=== PATIENT | female | born 1950 | race American Indian/Alaskan Native ===

== ENCOUNTER → 2017-03-29 | Outpatient (CLI) | payer MEDICARE, OTHER ==
[~2017-03-29] MED LIST: (None)20 M1 PO; ALBU3IS INH; ALBU90OI INH; ALBU90OI6 INH; ALBU90OI61 INH; ALPR1 PO; AZIT250 PO; AZITHROMYCIN PO; BENZ100A PO; CEPH500 PO; CHLO25B; CHLO25B PO; CIPR500 PO; CODGUAEL PO; COMBIVENT RESPIM4 GM INH; Chlorthalidone25 MG PO; DELTASONE20 MG PO; DIGO.125 PO; DOXY100 PO; DULERA 200 MCG/13 GM INH; Duoneb 2.5-0.5 M3 ML INH; FLUSAL2505 IH; FLUSAL5005 IH; FLUSAL5005 INH; FLUT.05NI; FLUT1DIS8 INH; FURO20 PO; GUAI600T33 PO; HYDACE10B; HYDACE10B PO; HYDCHL25 PO; HYDGUAL120 PO; K DU; K-Dur20 MEQ PO; KADIAN PO; LANOXIN125 MCG PO; LEVA.63IS; LEVA.63IS IH; LEVA.63IS INH; LEVA1.25 IH; LEVFLO500 PO; LEVO750 PO; LISI5 PO; LOPE2C PO; LORA10 PO; LORA2 PO; Levaquin500 MG PO; MEDROL PO; METO25ER PO; MOMENI; MONT10T PO; MORP15ER; MORP50ER PO; MORP60ER PO; MORPHINE SULFA100 M1 PO; MS CONTIN; MS CONTIN PO; MUCINEX; MUCINEX ER PO; NICO14TP TOP; Nasonex17 GM; OMEP20ER PO; OXYACE5T PO; OXYC10ER; OXYC15ER PO; POTA10T PO; POTCHL10ER PO; POTCHL20ER; POTCHL20ER PO; PRED10; PRED10 PO; PRED20; PRED20 PO; PROCODE120 PO; PRODEXEL PO; PROM25 PO; Prednisone20 MG PO; RANI150 PO; RXHYDACE PO; Roxicodone15 MG PO; SERT50 PO; SULTRIDS PO; TIOT18 IH; TIOT18 INH; Tessalon Perle100 MG PO; Valium5 MG PO; Ventolin Soln3 ML INH; Ventolin5 MG/1 ML IH; Vibramycin100 MG PO; Xanax1 MG PO; Xopenex Hfa15 GM INH; ZOLP10 PO; Zithromax250 MG PO; [UNRECOGNIZED DRUG - OTHER] PO
== END ==
LOC: OLS 09:55
DX: R05 Cough (principal)
CPT/HCPCS: 87070; 87205

== ENCOUNTER 2017-04-11 16:37 | Inpatient (IN) | payer MEDICARE, OTHER ==
[~2017-04-11] VITALS: Ht 167.6 cm; Wt 70.1 kg
[~2017-04-11 16:37] MED LIST changes: -DELTASONE20 MG PO
[2017-04-11] MEDS ORDERED: GUAI600T33 PO (17:12)
[2017-04-11 17:15] LABS: BASOPHILS ABSOLUTE AUTO 0.07 K/mm3 (0.00-0.23); BASOPHILS PERCENT AUTO 1 % (0-2); EOSINOPHILS ABSOLUTE AUTO 0.02 K/mm3 (0.00-0.68); EOSINOPHILS PERCENT AUTO 0 % (0-6); IMMATURE GRAN ABSOLUTE AUTO 0.06 K/mm3 (0.00-0.10); IMMATURE GRAN PERCENT AUTO 0 % (0-1); LYMPHOCYTES ABSOLUTE AUTO 0.57 K/mm3 (0.84-5.20); LYMPHOCYTES PERCENT AUTO 4 % (21-46); MONOCYTES ABSOLUTE AUTO 0.08 K/mm3 (0.16-1.47); MONOCYTES PERCENT AUTO 1 % (4-13); Mean Corpuscular HGB 30.9 pg (26.0-34.0); Mean Corpuscular HGB Conc 34.1 g/dL (31.5-36.5); Mean Corpuscular Volume 91 fL (80-100); Mean Platelet Volume 9.2 fL (9.1-12.4); NEUTROPHILS ABSOLUTE AUTO 14.61 K/mm3 (1.96-9.15); NEUTROPHILS PERCENT AUTO 95 % (41-73); Platelet Count 318 K/mm3 (150-400); RDW Standard Deviation 42.9 fL (35.1-46.3); Red Blood Cell Count 4.86 M/mm3 (3.80-5.20); White Blood Cell Count 15.41 K/mm3 (4.00-11.30)
[2017-04-11 17:41] LABS: Troponin I <0.015 ng/mL (0.000-0.040)
[2017-04-11 17:44] LABS: Alanine Aminotransfer (ALT/SGP 17 U/L (12-78); Albumin, Blood 3.7 g/dL (3.4-5.0); Albumin/Globulin Ratio 0.9 (0.8-1.8); Alk Phos 79 U/L (50-136); Anion Gap 11 mmol/L (6-16); Aspartate Aminotrans (AST/SGOT 23 U/L (12-37); Bilirubin, Total 0.4 mg/dL (0.1-1.0); Blood Urea Nitrogen 4 mg/dL (8-24); Bun/Creatinine Ratio 10.5 (12.0-20.0); CO2, Blood 29 mmol/L (21-32); Calcium, Blood 9.2 mg/dL (8.5-10.1); Chloride, Blood 95 mmol/L (98-108); Creatinine, Blood 0.38 mg/dL (0.40-1.00); Globulin, Blood 3.9 g/dL (2.2-4.0); Glomerular Filtration Rate >60 (60-); Glucose, Blood 126 mg/dL (70-99); Potassium, Blood 2.8 mmol/L (3.5-5.5); Sodium, Blood 135 mmol/L (136-145); Total Protein, Blood 7.6 g/dL (6.4-8.2)
[2017-04-11 20:32] LABS: Digoxin (Lanoxin) 0.45 ug/mL (0.80-2.00)
[2017-04-11 20:48] LABS: Digoxin (Lanoxin) 0.52 ug/mL (0.80-2.00)
[2017-04-12 05:10] LABS: PCO2 Arterial 42.1 mmHg (35-45); PO2 Arterial 58.6 mmHg (80-100); pH Blood Arterial 7.44 (7.35-7.45)
[2017-04-12 05:23] LABS: BASOPHILS ABSOLUTE AUTO 0.01 K/mm3 (0.00-0.23); BASOPHILS PERCENT AUTO 0 % (0-2); EOSINOPHILS PERCENT AUTO 0 % (0-6); Hematocrit 38.3 % (33.0-51.0); Hemoglobin 13.3 g/dL (11.5-16.0); IMMATURE GRAN ABSOLUTE AUTO 0.03 K/mm3 (0.00-0.10); IMMATURE GRAN PERCENT AUTO 0 % (0-1); LYMPHOCYTES ABSOLUTE AUTO 0.58 K/mm3 (0.84-5.20); LYMPHOCYTES PERCENT AUTO 7 % (21-46); MONOCYTES PERCENT AUTO 1 % (4-13); Mean Corpuscular HGB 31.4 pg (26.0-34.0); Mean Corpuscular HGB Conc 34.7 g/dL (31.5-36.5); Mean Corpuscular Volume 91 fL (80-100); Mean Platelet Volume 9.8 fL (9.1-12.4); NEUTROPHILS ABSOLUTE AUTO 8.24 K/mm3 (1.96-9.15); NEUTROPHILS PERCENT AUTO 92 % (41-73); Platelet Count 274 K/mm3 (150-400); RDW Coefficient Variation 13.1 % (11.7-14.2); RDW Standard Deviation 43.2 fL (35.1-46.3); Red Blood Cell Count 4.23 M/mm3 (3.80-5.20); White Blood Cell Count 8.96 K/mm3 (4.00-11.30)
[2017-04-12 05:56] LABS: Alanine Aminotransfer (ALT/SGP 14 U/L (12-78); Albumin/Globulin Ratio 0.9 (0.8-1.8); Alk Phos 60 U/L (50-136); Anion Gap 10 mmol/L (6-16); Aspartate Aminotrans (AST/SGOT 13 U/L (12-37); Bilirubin, Total 0.3 mg/dL (0.1-1.0); Blood Urea Nitrogen 5 mg/dL (8-24); Bun/Creatinine Ratio 14.6 (12.0-20.0); CO2, Blood 27 mmol/L (21-32); Calcium, Blood 8.8 mg/dL (8.5-10.1); Chloride, Blood 101 mmol/L (98-108); Creatinine, Blood 0.34 mg/dL (0.40-1.00); Globulin, Blood 3.4 g/dL (2.2-4.0); Glomerular Filtration Rate >60 (60-); Glucose, Blood 172 mg/dL (70-99); Potassium, Blood 2.7 mmol/L (3.5-5.5); Sodium, Blood 138 mmol/L (136-145); Total Protein, Blood 6.4 g/dL (6.4-8.2)
[2017-04-13 06:03] LABS: Hemoglobin 12.6 g/dL (11.5-16.0); Mean Corpuscular HGB 30.7 pg (26.0-34.0); Mean Corpuscular HGB Conc 33.2 g/dL (31.5-36.5); Mean Corpuscular Volume 93 fL (80-100); Mean Platelet Volume 9.6 fL (9.1-12.4); Platelet Count 272 K/mm3 (150-400); RDW Coefficient Variation 13.9 % (11.7-14.2); RDW Standard Deviation 47.2 fL (35.1-46.3); White Blood Cell Count 26.23 K/mm3 (4.00-11.30)
[2017-04-13 06:28] LABS: Anion Gap 6 mmol/L (6-16); Blood Urea Nitrogen 8 mg/dL (8-24); Bun/Creatinine Ratio 22.5 (12.0-20.0); CO2, Blood 29 mmol/L (21-32); Calcium, Blood 8.7 mg/dL (8.5-10.1); Chloride, Blood 105 mmol/L (98-108); Creatinine, Blood 0.36 mg/dL (0.40-1.00); Glomerular Filtration Rate >60 (60-); Glucose, Blood 123 mg/dL (70-99); Potassium, Blood 4.4 mmol/L (3.5-5.5); Sodium, Blood 140 mmol/L (136-145)
[2017-04-13] MEDS ORDERED: ALBU3IS INH (12:37)
[2017-04-13] MEDS ORDERED: DELTASONE20 MG PO (13:08)
== END 2017-04-13 15:12 | disposition home or self-care (01) | DRG 189 ==
LOC: ER 16:37 → MEDS 16:38 → ENPENDDIS 04-13 12:00 → MEDS 04-13 15:12
PROVIDERS: Emergency Medicine; Internal Medicine
DX: J96.21 Acute and chronic respiratory failure with hypoxia (principal); J44.1 Chronic obstructive pulmonary disease with (acute) exacerbation; Z99.81 Dependence on supplemental oxygen; G89.4 Chronic pain syndrome; I10 Essential (primary) hypertension; E87.6 Hypokalemia; K21.9 Gastro-esophageal reflux disease without esophagitis; F60.9 Personality disorder, unspecified; Z88.6 Allergy status to analgesic agent; Z88.1 Allergy status to other antibiotic agents; Z88.0 Allergy status to penicillin; Z88.8 Allergy status to other drugs, medicaments and biological substances; Z79.891 Long term (current) use of opiate analgesic; Z79.51 Long term (current) use of inhaled steroids; Z79.899 Other long term (current) drug therapy; Z87.891 Personal history of nicotine dependence
CPT/HCPCS: 36415; 36600; 71046; 80048; 80053; 80162; 82803; 83880; 84145; 84484; 85025; 85027; 87070; 87205; 94010; 94640; 94664; 94667; 94760; 96361; 96365; 96366; 96367; 96368; 96375; 96376; 98960; 99285; 99407; G0378; J0456; J0696; J1170; J2001; J2930; J3480; J7030; J7050

== ENCOUNTER 2017-08-10 16:51 | Emergency (ER) | payer MEDICARE, OTHER ==
[~2017-08-10] VITALS: Ht 167.6 cm; Wt 59.0 kg
[~2017-08-10 16:51] MED LIST changes: +DELTASONE20 MG PO
== END 2017-08-10 18:37 | disposition home or self-care (01) ==
LOC: ER 16:51
DX: S50.11XA Contusion of right forearm, initial encounter (principal); W22.8XXA Striking against or struck by other objects, initial encounter; Z88.8 Allergy status to other drugs, medicaments and biological substances; Z88.5 Allergy status to narcotic agent; Z88.0 Allergy status to penicillin; Z88.1 Allergy status to other antibiotic agents; Z79.899 Other long term (current) drug therapy; Z79.891 Long term (current) use of opiate analgesic; Z79.52 Long term (current) use of systemic steroids; J44.9 Chronic obstructive pulmonary disease, unspecified; Z85.3 Personal history of malignant neoplasm of breast; F17.200 Nicotine dependence, unspecified, uncomplicated
CPT/HCPCS: 99282

== ENCOUNTER 2019-03-10 19:09 | Emergency (ER) | payer MEDICARE ==
[~2019-03-10] VITALS: Ht 167.6 cm; Wt 56.7 kg
[~2019-03-10 19:09] MED LIST changes: +CEFU500T30 PO; +CODEINE-GUAIFE120 ML PO; +Robaxin-750750 MG PO
[2019-03-10] MEDS ORDERED: Prednisone20 MG PO (21:45)
[2019-03-10] MEDS ORDERED: CODEINE-GUAIFE120 ML PO (21:45)
== END 2019-03-10 21:55 | disposition home or self-care (01) ==
LOC: ER 19:09
DX: J40 Bronchitis, not specified as acute or chronic (principal); J44.9 Chronic obstructive pulmonary disease, unspecified; Z79.899 Other long term (current) drug therapy; Z79.51 Long term (current) use of inhaled steroids; Z88.8 Allergy status to other drugs, medicaments and biological substances; Z88.1 Allergy status to other antibiotic agents; Z88.6 Allergy status to analgesic agent; Z88.0 Allergy status to penicillin; Z91.09 Other allergy status, other than to drugs and biological substances; Z87.891 Personal history of nicotine dependence
CPT/HCPCS: 71046; 94644; 99283-25

== ENCOUNTER 2020-01-04 16:46 | Emergency (ER) | payer MEDICARE, OTHER ==
[~2020-01-04] VITALS: Ht 165.1 cm; Wt 59.0 kg
[2020-01-04] MEDS ORDERED: BENZ100A PO (17:32)
[2020-01-04] MEDS ORDERED: Vibramycin100 MG PO (17:32)
[2020-01-04] MEDS ORDERED: HYDR1TAB94 PO (17:32)
== END 2020-01-04 17:47 | disposition home or self-care (01) ==
LOC: ER 16:46
DX: J44.1 Chronic obstructive pulmonary disease with (acute) exacerbation (principal); Z79.899 Other long term (current) drug therapy; Z88.8 Allergy status to other drugs, medicaments and biological substances; Z88.6 Allergy status to analgesic agent; Z88.0 Allergy status to penicillin; Z88.1 Allergy status to other antibiotic agents; Z87.891 Personal history of nicotine dependence
CPT/HCPCS: 71046; 99283-25

== ENCOUNTER 2020-07-06 20:08 | Emergency (ER) | payer MEDICARE, OTHER ==
[~2020-07-06] VITALS: Ht 165.1 cm; Wt 56.7 kg
[~2020-07-06 20:08] MED LIST changes: +HYDR1TAB94 PO
== END 2020-07-06 23:30 | disposition home or self-care (01) ==
LOC: ER 20:08
DX: S13.9XXA Sprain of joints and ligaments of unspecified parts of neck, initial encounter (principal); J44.9 Chronic obstructive pulmonary disease, unspecified; Z88.6 Allergy status to analgesic agent; Z88.0 Allergy status to penicillin; Z91.041 Radiographic dye allergy status; Z88.8 Allergy status to other drugs, medicaments and biological substances; Z87.891 Personal history of nicotine dependence; W22.8XXA Striking against or struck by other objects, initial encounter
CPT/HCPCS: 72125; 99283-25

== ENCOUNTER 2021-04-06 07:30 | Day surgery (SDC) | payer MEDICARE, OTHER ==
[~2021-04-06] VITALS: Ht 165.1 cm; Wt 60.1 kg
[~2021-04-06 07:30] MED LIST changes: +ALBU2.5V5 INH; +ALLEGRA ALLERG180 MG PO; +B-121000 MC3 PO; +COMBIVENT RESPIM4 G1 INH; +Hygroton50 MG; +IPRAT-ALBUT 0.5-3 ML INH; +LORA10ER PO; +NYSTATIN100000 UN1 MT; +PROM12.5S PR; +Robaxin750 MG PO
[2021-04-06] MEDS ORDERED: OMEP20ER (07:48)
[2021-04-06] MEDS ORDERED: OXYC15ER (07:49)
== END 2021-04-06 09:25 | disposition home or self-care (01) ==
LOC: ORSCSDS 07:30
PROVIDERS: Student in an Organized Health Care Education/Training Program
PROC: 0DB68ZX Excision of Stomach, Via Natural or Artificial Opening Endoscopic, Diagnostic (ICD-10-PCS; principal; 2021-04-06 08:30)
PROC: 0DB48ZX Excision of Esophagogastric Junction, Via Natural or Artificial Opening Endoscopic, Diagnostic (ICD-10-PCS; principal; 2021-04-06 08:30)
DX: K21.9 Gastro-esophageal reflux disease without esophagitis (principal); K22.70 Barrett's esophagus without dysplasia; R11.0 Nausea; J44.9 Chronic obstructive pulmonary disease, unspecified; J45.909 Unspecified asthma, uncomplicated; M79.7 Fibromyalgia; I10 Essential (primary) hypertension; E78.5 Hyperlipidemia, unspecified; Z79.899 Other long term (current) drug therapy; Z87.891 Personal history of nicotine dependence
CPT/HCPCS: 88305; 88342; J2704; J7120